=== PATIENT | male | born 1965 ===

== ENCOUNTER 2022-10-01 05:15 | Day surgery (SDC) | payer OTHER ==
[~2022-10-01] VITALS: Ht 170.2 cm; Wt 73.9 kg
[~2022-10-01 05:15] MED LIST: COZAAR25 MG PO; SYNTHROID50 MCG PO; TAMS0.4C PO
[2022-10-01] MEDS ORDERED: TRAMADOL HCL50 MG PO (12:54)
== END 2022-10-01 13:50 | disposition home or self-care (01) ==
LOC: CIR.AMB 05:15
PROVIDERS: ATTEND Surgery
DX: N48.6 Induration penis plastica (principal); I10 Essential (primary) hypertension; E03.9 Hypothyroidism, unspecified; Z20.822 Contact with and (suspected) exposure to COVID-19